=== PATIENT | female | born 1970 ===

== ENCOUNTER 2022-07-04 19:23 | Emergency (ER) | payer SELFPAY ==
[~2022-07-04] VITALS: Ht 162.6 cm; Wt 56.8 kg
[2022-07-04 22:30] VITALS: BP 122/79
== END 2022-07-04 23:12 | disposition home or self-care (01) ==
LOC: EMS 19:35
DX: M79.18 Myalgia, other site (principal)
CPT/HCPCS: 99283; Z7502